=== PATIENT | male | born 1945 | race Caucasian/White ===

== ENCOUNTER → 2017-12-24 | Outpatient (CLI) | payer OTHER ==
[~2017-12-24] MED LIST: ACET-1757 PO; ACID1TAB3 PO; ALPR0.25 PO; APIX5TAB PO; ASPI325T17 PO; ATOR40TA PO; BISA10SU2 PR; CARV25TA12 PO; CHLO25TA PO; CHOL20002 PO; CLOP75TA PO; DOCU-131 PO; FOLI-17 PO; FURO20TA3 PO; HYDR12.58 PO; HYDR25TA6 PO; LISI-170 PO; LOSA25TA2 PO; LOSA50TA6 PO; NIFE20CA PO; NIFE30TA15 PO; PANT20TA3 PO; POLY17PO5 PO; POTA20TA14 PO; RIVA10TA PO; RIVA20TA PO; SENN1TAB7 PO; SERT50TA PO; SPIR25TA3 PO; THIA100T10 PO; VALS160T3 PO; cozaar; procardia
== END | disposition home or self-care (01) ==
LOC: CVU 11:53
PROVIDERS: ATTEND Psychiatry & Neurology Neurology
DX: I65.23 Occlusion and stenosis of bilateral carotid arteries (principal); I48.91 Unspecified atrial fibrillation; Z95.0 Presence of cardiac pacemaker
CPT/HCPCS: 93880

== ENCOUNTER 2018-03-31 14:20 | Inpatient (IN) | payer OTHER ==
[~2018-03-31] VITALS: Ht 182.9 cm; Wt 98.7 kg
[2018-03-31 15:07] LABS: INTERNATIONAL NORMALIZED RATIO 1.37 (0.93-1.1); PROTHROMBIN TIME 14.2 Seconds (9.6-11.5)
[2018-03-31 15:11] LABS: ALANINE AMINOTRANSFERASE 38 U/L (12-78); ALBUMIN 3.4 g/dL (3.4-5.0); ANION GAP 9 mmol/L (5-15); CALCIUM 8.6 mg/dL (8.5-10.1); CHLORIDE 106 mmol/L (98-107); CREATININE 0.93 mg/dL (0.7-1.3)
[2018-03-31 15:15] LABS: BASOPHILS # (AUTO) 0.03 x10^3/uL (0-0.1); BASOPHILS % (AUTO) 0 % (0-1); EOSINOPHILS # (AUTO) 0.04 x10^3/uL (0-0.4); EOSINOPHILS % (AUTO) 1 % (1-7); LYMPHOCYTES # (AUTO) 1.44 x10^3/uL (1-3.4); LYMPHOCYTES % (AUTO) 16 % (22-44); MD NO; MEAN CORPUSCULAR HEMOGLOBIN 30.1 pg (27.5-34.5); MEAN CORPUSCULAR HGB CONC 33.1 g/dL (33.2-36.2); MEAN CORPUSCULAR VOLUME 91.1 fL (81-97); MEAN PLATELET VOLUME 9.2 fL (7.4-10.4); MONOCYTES # (AUTO) 0.81 x10^3/uL (0.2-0.8); MONOCYTES % (AUTO) 9 % (2-9); NEUTROPHILS # (AUTO) 6.72 x10^3/uL (1.8-6.8); NEUTROPHILS % (AUTO) 74 % (42-75); PLATELET COUNT 184 x10^3/uL (130-400); RED BLOOD COUNT 4.95 x10^6/uL (4.38-5.82); RED CELL DISTRIBUTION WIDTH 14.4 % (9.4-14.8)
[2018-03-31 15:16] LABS: ALKALINE PHOSPHATASE 81 U/L (45-117); BILIRUBIN,TOTAL 1.3 mg/dL (0.2-1.0); TOTAL PROTEIN 7.1 g/dL (6.4-8.2); TROPONIN I 0.019 ng/mL (0.000-0.045)
[2018-03-31] MEDS ORDERED: FUROSEMIDE 40 MG/4 ML IV ONE (16:00)
[2018-03-31] MEDS ORDERED: FUROSEMIDE 20 MG/2 ML ONE (16:14)
[2018-03-31] MEDS ORDERED: FUROSEMIDE 40 MG/4 ML ONE (16:15)
[2018-03-31] MEDS ORDERED: ONDANSETRON 2MG/ML, 2ML IVPush PRN (16:30)
[2018-03-31] MEDS ORDERED: ACETAMINOPHEN 325 MG TABLET PO PRN (16:30)
[2018-03-31] MEDS ORDERED: BISACODYL 10 MG SUPP PR PRN (16:30)
[2018-03-31] MEDS ORDERED: CEFTRIAXONE PMX 2GM/50ML 50 ML IV SCH (17:00)
[2018-03-31] MEDS ORDERED: CEFTRIAXONE PMX 2GM/50ML 50 ML ONE (17:35)
[2018-03-31 20:32] VITALS: BP 143/93
[2018-03-31 20:48] VITALS: BP 143/93
[2018-03-31] MEDS: CARVEDILOL 12.5 MG TABLET PO SCH (21:05)
[2018-03-31] MEDS: APIXABAN 5 MG TABLET PO SCH (21:06)
[2018-03-31] MEDS: LACTOBACILLUS CHEW TABLET PO SCH (21:08)
[2018-03-31] MEDS: ISOSORBIDE DINITRATE 10 MG TABLET PO SCH (21:08)
[2018-03-31 21:28] LABS: TROPONIN I 0.018 ng/mL (0.000-0.045)
[2018-04-01 02:00] VITALS: BP 129/82
[2018-04-01 05:29] LABS: TROPONIN I 0.022 ng/mL (0.000-0.045)
[2018-04-01] MEDS ORDERED: PANTOPRAZOLE 20MG TABLET PO SCH (07:30)
[2018-04-01] MEDS ORDERED: SERTRALINE 100MG TABLET ONE (07:49)
[2018-04-01] MEDS: APIXABAN 5 MG TABLET PO SCH (07:57)
[2018-04-01] MEDS: LACTOBACILLUS CHEW TABLET PO SCH (08:01)
[2018-04-01] MEDS: ISOSORBIDE DINITRATE 10 MG TABLET PO SCH (08:01)
[2018-04-01] MEDS: CARVEDILOL 12.5 MG TABLET PO SCH (08:02)
[2018-04-01] MEDS ORDERED: AMOX-291 PO (08:04)
[2018-04-01] MEDS ORDERED: DOXY100C2 PO (08:04)
[2018-04-01] MEDS ORDERED: CARV25TA12 PO (08:04)
[2018-04-01] MEDS ORDERED: ACID1TAB7 PO (08:04)
[2018-04-01] MEDS ORDERED: HYDR-3341 PO (08:04)
[2018-04-01] MEDS ORDERED: ISOS10TA2 PO (08:04)
[2018-04-01] MEDS ORDERED: CHOLECALCIFEROL 1,000 UNIT TABLET PO SCH (09:00)
[2018-04-01] MEDS ORDERED: CHLORTHALIDONE 25 MG TABLET PO SCH (09:00)
[2018-04-01] MEDS ORDERED: AMOXICILLIN 500 MG CAPSULE PO SCH (09:00)
[2018-04-01] MEDS ORDERED: DOXYCYCLINE 100MG CAP PO SCH (09:00)
[2018-04-01] MEDS ORDERED: SERTRALINE 50MG TABLET PO SCH (09:00)
[2018-04-01 09:30] VITALS: BP_SYST 89; BP_SYST 94; BP_DIAS 50; BP_DIAS 61
[2018-04-01 12:50] VITALS: BP 100/63
== END 2018-04-01 14:25 | disposition home or self-care (01) | DRG 291 ==
LOC: ED 15:38 → EDIP 15:59 → 5SO 20:09 → DCLOUNGE 04-01 14:05
PROVIDERS: ADMIT Hospitalist; ATTEND Hospitalist
DX: I11.0 Hypertensive heart disease with heart failure (principal); J18.9 Pneumonia, unspecified organism; I48.91 Unspecified atrial fibrillation; Z79.01 Long term (current) use of anticoagulants; K21.9 Gastro-esophageal reflux disease without esophagitis; I50.9 Heart failure, unspecified; G47.00 Insomnia, unspecified; I25.2 Old myocardial infarction; Z82.49 Family history of ischemic heart disease and other diseases of the circulatory system; Z86.73 Personal history of transient ischemic attack (TIA), and cerebral infarction without residual deficits; Z91.14 Patient's other noncompliance with medication regimen; Z95.0 Presence of cardiac pacemaker; Z90.49 Acquired absence of other specified parts of digestive tract; E66.9 Obesity, unspecified; Z68.29 Body mass index [BMI] 29.0-29.9, adult; Z71.3 Dietary counseling and surveillance
CPT/HCPCS: 36415; 71045; 80053; 83880; 84484; 85025; 85610; 93005; 96374; J0696; J1940

== ENCOUNTER → 2018-04-14 | Outpatient (CLI) | payer OTHER ==
[~2018-04-14] MED LIST changes: +ACID1TAB7 PO; +AMOX-291 PO; +DOXY100C2 PO; +HYDR-3341 PO; +ISOS10TA2 PO
== END | disposition home or self-care (01) ==
LOC: CFH 08:47
PROVIDERS: ATTEND Family Medicine
DX: I08.3 Combined rheumatic disorders of mitral, aortic and tricuspid valves (principal); I50.9 Heart failure, unspecified; Z86.73 Personal history of transient ischemic attack (TIA), and cerebral infarction without residual deficits
CPT/HCPCS: 93306

== ENCOUNTER 2018-09-20 21:18 | Inpatient (IN) | payer OTHER ==
[~2018-09-20] VITALS: Ht 182.9 cm; Wt 97.8 kg
[~2018-09-20 21:18] MED LIST changes: +CARV12.543 PO; -CHOL20002 PO; +CHOL200052 PO; +FURO40TA6 PO; -HYDR12.58 PO; +HYDROCHLOROTH12.5 MG PO; -LOSA50TA6 PO; +LOSA50TA7 PO; -SENN1TAB7 PO; +SENN1TAB8 PO; +SPIR25TA PO; -SPIR25TA3 PO; +SPIR25TA5 PO
--- NOTE | 2018-09-20 21:34 | NUR ---
BELEM [facility]KIN[facility] FROM [facility] W/ CO REDNESS/PAIN/DRAINAGE AT ANGIOGRAM SITE ON R GROIN. PT DENIES FEVER/N/V BP/SP02 MONITORING IN PLACE
[2018-09-20 22:00] LABS: BASOPHILS # (AUTO) 0.03 x10^3/uL (0-0.1); BASOPHILS % (AUTO) 1 % (0-1); EOSINOPHILS # (AUTO) 0.09 x10^3/uL (0-0.4); EOSINOPHILS % (AUTO) 2 % (1-7); LYMPHOCYTES # (AUTO) 1.34 x10^3/uL (1-3.4); LYMPHOCYTES % (AUTO) 24 % (22-44); MD NO; MEAN CORPUSCULAR HEMOGLOBIN 29.7 pg (27.5-34.5); MEAN PLATELET VOLUME 9.2 fL (7.4-10.4); MONOCYTES % (AUTO) 7 % (2-9); NEUTROPHILS % (AUTO) 67 % (42-75); PLATELET COUNT 166 x10^3/uL (130-400); RED BLOOD COUNT 4.75 x10^6/uL (4.38-5.82); RED CELL DISTRIBUTION WIDTH 15.6 % (9.4-14.8)
[2018-09-20 22:08] LABS: INTERNATIONAL NORMALIZED RATIO 1.58 (0.93-1.1); PROTHROMBIN TIME 16.5 Seconds (9.6-11.5)
[2018-09-20 22:09] LABS: ALBUMIN 2.9 g/dL (3.4-5.0); ANION GAP 5 mmol/L (5-15); CALCIUM 8.3 mg/dL (8.5-10.1); CHLORIDE 107 mmol/L (98-107)
--- NOTE | 2018-09-20 22:10 | NUR ---
IV ESTABLISHED. PT UPDATED TO POC (CT/RESULTS/RECHECK) AND DEMONSTRATES UNDERSTANDING.
--- NOTE | 2018-09-20 22:24 | NUR ---
PT TO CT
[2018-09-20] MEDS ORDERED: OMNIPAQUE 350 MG/ML, 100ML BOTTLE ONE (22:41)
[2018-09-20] MEDS ORDERED: LIDOCAINE-MPF 1%, 5ML ONE (23:24)
--- NOTE | 2018-09-20 23:30 | NUR ---
POC IS I&D. I&D SET UP. PT MADE AWARE AND DEMONSTRATES UNDERSTANDING.
--- NOTE | 2018-09-20 23:56 | NUR ---
CATA NEVAREZ AT BEDSIDE FOR I&D
[2018-09-21] VITALS (9 sets, daily range): BP systolic 104–134; BP diastolic 77–96
[2018-09-21] MEDS ORDERED: CLINDAMYCIN PMX 600MG/50ML 50 ML IV ONE
[2018-09-21] MEDS ORDERED: LIDOCAINE-MPF 1%, 2ML ONE (00:02)
[2018-09-21] MEDS ORDERED: CLINDAMYCIN PMX 600MG/50ML 50 ML ONE (00:02)
--- NOTE | 2018-09-21 00:14 | NUR ---
REPORT CALLED TO RADHA KEITH ON MEDICAL FLOOR. AWAITING BC DRAW AND ABX START FOR TRANSPORT
--- NOTE | 2018-09-21 00:25 | NUR ---
BCX2 DRAWN. ABX INITIATED.
[2018-09-21] MEDS ORDERED: BISACODYL 10 MG SUPP PR PRN (00:30)
[2018-09-21] MEDS ORDERED: POLYETHYLENE GLYCOL 17 GM PACKET PO PRN (00:30)
[2018-09-21] MEDS ORDERED: ONDANSETRON ODT 4 MG PO PRN (00:30)
[2018-09-21] MEDS ORDERED: OXYcodone IR 5MG TABLET PO PRN (00:30)
[2018-09-21] MEDS ORDERED: ACETAMINOPHEN 325 MG TABLET PO PRN (00:30)
[2018-09-21] MEDS: CARVEDILOL 12.5 MG TABLET PO SCH ×2 (05:53→18:27)
[2018-09-21] MEDS: SPIRONOLACTONE 25 MG TABLET PO SCH (08:25)
[2018-09-21] MEDS: CHOLECALCIFEROL 1,000 UNIT TABLET PO SCH (08:27)
[2018-09-21] MEDS: APIXABAN 5 MG TABLET PO SCH ×2 (08:27→21:56)
[2018-09-21] MEDS: FUROSEMIDE 40 MG TABLET PO SCH (08:29)
[2018-09-21] MEDS: SERTRALINE 50MG TABLET PO SCH (08:29)
[2018-09-21] MEDS: SENNA/DOCUSATE TABLET PO SCH (08:30)
[2018-09-21] MEDS: SODIUM CHLORIDE FLUSH 10ML SYR IVF SCH ×2 (08:30→21:56)
[2018-09-21] MEDS: ISOSORBIDE DINITRATE 10 MG TABLET PO SCH ×3 (08:30→21:56)
[2018-09-21] MEDS: CLINDAMYCIN PMX 600MG/50ML 50 ML IV SCH ×2 (09:37→16:27)
[2018-09-22] MEDS: CLINDAMYCIN PMX 600MG/50ML 50 ML IV SCH ×3 (00:45→16:32)
[2018-09-22 01:48] VITALS: BP 122/88
[2018-09-22 04:44] LABS: BASOPHILS # (AUTO) 0.06 x10^3/uL (0-0.1); BASOPHILS % (AUTO) 1 % (0-1); EOSINOPHILS # (AUTO) 0.06 x10^3/uL (0-0.4); EOSINOPHILS % (AUTO) 1 % (1-7); LYMPHOCYTES # (AUTO) 1.21 x10^3/uL (1-3.4); LYMPHOCYTES % (AUTO) 25 % (22-44); MD NO; MEAN CORPUSCULAR HEMOGLOBIN 29.8 pg (27.5-34.5); MEAN CORPUSCULAR HGB CONC 33.4 g/dL (33.2-36.2); MEAN CORPUSCULAR VOLUME 89.4 fL (81-97); MEAN PLATELET VOLUME 9.1 fL (7.4-10.4); MONOCYTES # (AUTO) 0.46 x10^3/uL (0.2-0.8); MONOCYTES % (AUTO) 9 % (2-9); NEUTROPHILS # (AUTO) 3.11 x10^3/uL (1.8-6.8); NEUTROPHILS % (AUTO) 64 % (42-75); PLATELET COUNT 152 x10^3/uL (130-400); RED BLOOD COUNT 4.83 x10^6/uL (4.38-5.82); RED CELL DISTRIBUTION WIDTH 15.8 % (9.4-14.8)
[2018-09-22 04:57] LABS: ANION GAP 9 mmol/L (5-15); CALCIUM 8.6 mg/dL (8.5-10.1); CHLORIDE 107 mmol/L (98-107); CREATININE 1.19 mg/dL (0.7-1.3)
[2018-09-22] MEDS: CARVEDILOL 12.5 MG TABLET PO SCH ×2 (05:55→18:28)
[2018-09-22 07:48] VITALS: BP 124/91
[2018-09-22 08:16] VITALS: BP 120/86
[2018-09-22] MEDS: SODIUM CHLORIDE FLUSH 10ML SYR IVF SCH ×2 (08:18→20:03)
[2018-09-22] MEDS: SPIRONOLACTONE 25 MG TABLET PO SCH (08:19)
[2018-09-22] MEDS: APIXABAN 5 MG TABLET PO SCH ×2 (08:19→20:02)
[2018-09-22] MEDS: SERTRALINE 50MG TABLET PO SCH (08:20)
[2018-09-22] MEDS: ISOSORBIDE DINITRATE 10 MG TABLET PO SCH ×3 (08:20→20:03)
[2018-09-22] MEDS: CHOLECALCIFEROL 1,000 UNIT TABLET PO SCH (08:20)
[2018-09-22] MEDS: SENNA/DOCUSATE TABLET PO SCH (08:21)
[2018-09-22] MEDS: FUROSEMIDE 40 MG TABLET PO SCH (08:21)
[2018-09-22] MEDS ORDERED: CLIN300C8 PO (08:49)
[2018-09-22 12:44] VITALS: BP 112/79
[2018-09-22] MEDS ORDERED: CALCIUM CARBONATE 500 MG TABLET PO ONE (14:30)
[2018-09-22] MEDS ORDERED: CALCIUM CARBONATE 500 MG TAB.CHEW PO ONE (15:00)
[2018-09-22 16:30] VITALS: BP 112/80
[2018-09-22 20:58] VITALS: BP 101/69
[2018-09-23] MEDS: CLINDAMYCIN PMX 600MG/50ML 50 ML IV SCH ×2 (00:28→08:21)
[2018-09-23 01:01] VITALS: BP 123/74
[2018-09-23] MEDS: CARVEDILOL 12.5 MG TABLET PO SCH (05:41)
[2018-09-23 07:45] VITALS: BP 111/78
[2018-09-23] MEDS: CHOLECALCIFEROL 1,000 UNIT TABLET PO SCH (08:22)
[2018-09-23] MEDS: SPIRONOLACTONE 25 MG TABLET PO SCH (08:22)
[2018-09-23] MEDS: FUROSEMIDE 40 MG TABLET PO SCH (08:22)
[2018-09-23] MEDS: SENNA/DOCUSATE TABLET PO SCH (08:23)
[2018-09-23] MEDS: SODIUM CHLORIDE FLUSH 10ML SYR IVF SCH (08:23)
[2018-09-23] MEDS: APIXABAN 5 MG TABLET PO SCH (08:23)
[2018-09-23] MEDS: ISOSORBIDE DINITRATE 10 MG TABLET PO SCH (08:23)
[2018-09-23] MEDS: SERTRALINE 50MG TABLET PO SCH (08:23)
[2018-09-23] MEDS ORDERED: ALUMINUM/MAG/SIMETHICONE 30 ML UDC PO PRN (08:30)
== END 2018-09-23 12:38 | DRG 580 ==
LOC: ED 22:01 → EDIP 09-21 00:05 → 3NE 09-21 00:38
PROVIDERS: ADMIT Internal Medicine; ATTEND Internal Medicine
PROC: 0Y950ZZ Drainage of Right Inguinal Region, Open Approach (ICD-10-PCS; principal; 2018-09-21)
DX: L02.214 Cutaneous abscess of groin (principal); I50.42 Chronic combined systolic (congestive) and diastolic (congestive) heart failure; D68.69 Other thrombophilia; E46 Unspecified protein-calorie malnutrition; L03.115 Cellulitis of right lower limb; I48.2 Chronic atrial fibrillation; I11.0 Hypertensive heart disease with heart failure; I08.2 Rheumatic disorders of both aortic and tricuspid valves; F32.9 Major depressive disorder, single episode, unspecified; F41.9 Anxiety disorder, unspecified; Z82.49 Family history of ischemic heart disease and other diseases of the circulatory system; Z95.0 Presence of cardiac pacemaker; Z86.73 Personal history of transient ischemic attack (TIA), and cerebral infarction without residual deficits; Z98.49 Cataract extraction status, unspecified eye
CPT/HCPCS: 10060; 36415; 74177; 80048; 82040; 83605; 85025; 85610; 85730; 86140; 87040; G0378; Q0162; Q9967

== ENCOUNTER 2018-11-02 11:30 | Outpatient (CLI) | payer OTHER ==
[~2018-11-02 11:30] MED LIST changes: +CLIN300C8 PO; +LOSA50TA14 PO; -LOSA50TA7 PO; -RIVA10TA PO; +RIVA10TA2 PO
[2018-11-02] MEDS ORDERED: OMNIPAQUE 350 MG/ML, 150 ML BOTTLE ONE (13:48)
== END 2018-11-02 23:59 | disposition home or self-care (01) ==
LOC: CVU 11:30 → RAD 23:59
PROVIDERS: ATTEND Internal Medicine Cardiovascular Disease
DX: N28.1 Cyst of kidney, acquired (principal); I65.23 Occlusion and stenosis of bilateral carotid arteries; I77.810 Thoracic aortic ectasia; I35.0 Nonrheumatic aortic (valve) stenosis; R53.83 Other fatigue; I11.9 Hypertensive heart disease without heart failure; I25.2 Old myocardial infarction; I48.91 Unspecified atrial fibrillation
CPT/HCPCS: 71275; 74174; 93880; 94060; 94729; Q9967

== ENCOUNTER 2018-11-08 07:45 | Inpatient (IN) | payer OTHER ==
[2018-11-07 12:27] LABS: MEAN CORPUSCULAR HEMOGLOBIN 29.5 pg (27.5-34.5); MEAN CORPUSCULAR HGB CONC 32.6 g/dL (33.2-36.2); MEAN CORPUSCULAR VOLUME 90.5 fL (81-97); MEAN PLATELET VOLUME 10.1 fL (7.4-10.4); PLATELET COUNT 152 x10^3/uL (130-400); RED BLOOD COUNT 4.69 x10^6/uL (4.38-5.82); RED CELL DISTRIBUTION WIDTH 22.1 % (9.4-14.8)
[2018-11-07 12:49] LABS: ALANINE AMINOTRANSFERASE 21 U/L (12-78); ANION GAP 5 mmol/L (5-15); CALCIUM 8.5 mg/dL (8.5-10.1); CHLORIDE 109 mmol/L (98-107); CREATININE 1.24 mg/dL (0.7-1.3)
[2018-11-07 12:51] LABS: ALKALINE PHOSPHATASE 99 U/L (45-117); BILIRUBIN,TOTAL 1.1 mg/dL (0.2-1.0); TOTAL PROTEIN 6.9 g/dL (6.4-8.2)
[2018-11-07 12:55] LABS: BASOPHILS # (AUTO) 0.03 x10^3/uL (0-0.1); BASOPHILS % (AUTO) 1 % (0-1); EOSINOPHILS # (AUTO) 0.01 x10^3/uL (0-0.4); EOSINOPHILS % (AUTO) 0 % (1-7); LYMPHOCYTES # (AUTO) 0.84 x10^3/uL (1-3.4); LYMPHOCYTES % (AUTO) 18 % (22-44); MD MORPH REVIEW ONLY; MONOCYTES # (AUTO) 0.44 x10^3/uL (0.2-0.8); MONOCYTES % (AUTO) 9 % (2-9); NEUTROPHILS # (AUTO) 3.45 x10^3/uL (1.8-6.8); NEUTROPHILS % (AUTO) 72 % (42-75)
[2018-11-07 12:56] LABS: ANISOCYTOSIS 1+; OVALOCYTES 1+
[2018-11-07 12:58] LABS: ACANTHOCYTES 1+; ECHINOCYTES 1+
[2018-11-07 12:59] LABS: <PLATELET ESTIMATE> ADEQUATE; LARGE PLATELETS 1+
[2018-11-08] VITALS (11 sets, daily range): BP systolic 101–159; BP diastolic 69–104
[~2018-11-08] VITALS: Ht 193 cm; Wt 93.2 kg
[2018-11-08] MEDS ORDERED: SODIUM CHLORIDE 0.9% 1,000 ML IV ONE (08:03)
[2018-11-08] MEDS ORDERED: ONDANSETRON 2MG/ML, 2ML IVPush PRN (08:30)
[2018-11-08] MEDS ORDERED: PLEASE ENTER HEIGHT AND WEIGHT MC SCH (08:30)
[2018-11-08] MEDS ORDERED: CHLORHEXIDINE 15 ML UDC MM PRN (08:30)
[2018-11-08 08:53] LABS: INTERNATIONAL NORMALIZED RATIO 1.37 (0.93-1.1); MEAN CORPUSCULAR HEMOGLOBIN 28.6 pg (27.5-34.5); MEAN CORPUSCULAR HGB CONC 31.8 g/dL (33.2-36.2); MEAN CORPUSCULAR VOLUME 90.1 fL (81-97); MEAN PLATELET VOLUME 9.6 fL (7.4-10.4); PLATELET COUNT 170 x10^3/uL (130-400); PROTHROMBIN TIME 14.3 Seconds (9.6-11.5); RED BLOOD COUNT 4.98 x10^6/uL (4.38-5.82); RED CELL DISTRIBUTION WIDTH 22.3 % (9.4-14.8)
[2018-11-08 08:54] LABS: ALANINE AMINOTRANSFERASE 21 U/L (12-78); ALBUMIN 3.2 g/dL (3.4-5.0); ANION GAP 8 mmol/L (5-15); CALCIUM 8.9 mg/dL (8.5-10.1); CHLORIDE 106 mmol/L (98-107); CREATININE 1.35 mg/dL (0.7-1.3)
[2018-11-08 08:58] LABS: ALKALINE PHOSPHATASE 94 U/L (45-117); BILIRUBIN,TOTAL 1.4 mg/dL (0.2-1.0); TOTAL PROTEIN 7.1 g/dL (6.4-8.2)
[2018-11-08 09:30] LABS: ANISOCYTOSIS 1+; BASOPHILS # (AUTO) 0.02 x10^3/uL (0-0.1); BASOPHILS % (AUTO) 0 % (0-1); EOSINOPHILS # (AUTO) 0.03 x10^3/uL (0-0.4); EOSINOPHILS % (AUTO) 1 % (1-7); LYMPHOCYTES # (AUTO) 0.85 x10^3/uL (1-3.4); LYMPHOCYTES % (AUTO) 17 % (22-44); MD MORPH REVIEW ONLY; MONOCYTES # (AUTO) 0.44 x10^3/uL (0.2-0.8); MONOCYTES % (AUTO) 9 % (2-9); NEUTROPHILS # (AUTO) 3.68 x10^3/uL (1.8-6.8); NEUTROPHILS % (AUTO) 73 % (42-75)
[2018-11-08 09:32] LABS: ACANTHOCYTES 1+; OVALOCYTES 1+
[2018-11-08] MEDS ORDERED: FENTANYL PF 100 MCG/2ML ONE (09:32)
[2018-11-08] MEDS ORDERED: ROCURONIUM 10MG/ML,5ML ONE (09:33)
[2018-11-08] MEDS ORDERED: PROPOFOL 10 MG/ML, 20ML ONE (09:33)
[2018-11-08 09:35] LABS: <PLATELET ESTIMATE> ADEQUATE; ECHINOCYTES 1+
[2018-11-08 09:36] LABS: LARGE PLATELETS 1+
[2018-11-08] MEDS ORDERED: SUCCINYLCHOLINE 20 MG/ML, 10ML ONE (09:41)
[2018-11-08] MEDS ORDERED: DEXAMETHASONE 4 MG/ML, 1ML ONE (09:41)
[2018-11-08] MEDS ORDERED: PHENYLEPHRINE 10 MG/ML ONE (09:41)
[2018-11-08] MEDS ORDERED: ONDANSETRON 2MG/ML, 2ML ONE (09:41)
[2018-11-08] MEDS ORDERED: PROTAMINE SULFATE 10 MG/ML, 5ML ONE (09:58)
[2018-11-08] MEDS ORDERED: CEFAZOLIN 1,000 MG ONE (09:58)
[2018-11-08] MEDS ORDERED: hydrALAzine 20 MG/ML, 1ML IVPush PRN (11:00)
[2018-11-08] MEDS ORDERED: LABETALOL 20 MG/4 ML IVPush PRN (11:00)
[2018-11-08] MEDS: ISOSORBIDE DINITRATE 10 MG TABLET PO SCH ×2 (17:16→21:46)
[2018-11-08] MEDS: ASPIRIN 81 MG TABLET EC PO SCH (17:16)
[2018-11-08] MEDS: CARVEDILOL 12.5 MG TABLET PO SCH (17:16)
[2018-11-08] MEDS: APIXABAN 5 MG TABLET PO SCH (21:46)
[2018-11-08] MEDS ORDERED: CEFAZOLIN PMX 1GM/50ML 50 ML IV ONE (22:00)
[2018-11-09 02:20] VITALS: BP 109/64
[2018-11-09] MEDS: CARVEDILOL 12.5 MG TABLET PO SCH ×2 (05:12→16:53)
[2018-11-09 06:13] LABS: BASOPHILS # (AUTO) 0.02 x10^3/uL (0-0.1); BASOPHILS % (AUTO) 0 % (0-1); EOSINOPHILS # (AUTO) 0.01 x10^3/uL (0-0.4); EOSINOPHILS % (AUTO) 0 % (1-7); LYMPHOCYTES # (AUTO) 1.13 x10^3/uL (1-3.4); LYMPHOCYTES % (AUTO) 20 % (22-44); MD NO; MEAN CORPUSCULAR HEMOGLOBIN 29.3 pg (27.5-34.5); MEAN CORPUSCULAR HGB CONC 32.4 g/dL (33.2-36.2); MEAN CORPUSCULAR VOLUME 90.5 fL (81-97); MEAN PLATELET VOLUME 9.6 fL (7.4-10.4); MONOCYTES # (AUTO) 0.39 x10^3/uL (0.2-0.8); MONOCYTES % (AUTO) 7 % (2-9); NEUTROPHILS % (AUTO) 73 % (42-75); PLATELET COUNT 138 x10^3/uL (130-400); RED BLOOD COUNT 4.44 x10^6/uL (4.38-5.82); RED CELL DISTRIBUTION WIDTH 21.9 % (9.4-14.8)
[2018-11-09 06:20] LABS: ANION GAP 9 mmol/L (5-15); CALCIUM 8.5 mg/dL (8.5-10.1); CHLORIDE 110 mmol/L (98-107); CREATININE 1.14 mg/dL (0.7-1.3)
[2018-11-09 06:49] VITALS: BP 101/65
[2018-11-09] MEDS ORDERED: ISOSORBIDE DINITRATE 20 MG TABLET ONE (08:10)
[2018-11-09] MEDS: ASPIRIN 81 MG TABLET EC PO SCH (08:22)
[2018-11-09] MEDS: SERTRALINE 50MG TABLET PO SCH (08:23)
[2018-11-09] MEDS: FUROSEMIDE 40 MG TABLET PO SCH (08:23)
[2018-11-09] MEDS: APIXABAN 5 MG TABLET PO SCH ×2 (08:23→20:56)
[2018-11-09] MEDS: ISOSORBIDE DINITRATE 10 MG TABLET PO SCH ×3 (08:38→20:56)
[2018-11-09] MEDS ORDERED: SPIRONOLACTONE 25 MG TABLET PO SCH (09:00)
[2018-11-09 13:12] VITALS: BP 103/70
[2018-11-09] MEDS ORDERED: ACETAMINOPHEN 325 MG TABLET PO PRN (17:30)
[2018-11-09 19:13] VITALS: BP 101/66
[2018-11-09] MEDS: ENALAPRIL 2.5MG TABLET PO SCH (20:56)
[2018-11-10 01:53] VITALS: BP 110/75
[2018-11-10] MEDS: CARVEDILOL 12.5 MG TABLET PO SCH ×2 (05:47→17:11)
[2018-11-10 08:49] VITALS: BP 102/73
[2018-11-10] MEDS ORDERED: ENALAPRIL 5MG TABLET ONE (08:56)
[2018-11-10] MEDS ORDERED: ISOSORBIDE DINITRATE 20 MG TABLET ONE ×2 (08:56→17:05)
[2018-11-10 09:00] VITALS: BP 110/73
[2018-11-10] MEDS: SPIRONOLACTONE 25 MG TABLET PO SCH (09:06)
[2018-11-10] MEDS: APIXABAN 5 MG TABLET PO SCH ×2 (09:06→20:17)
[2018-11-10] MEDS: ASPIRIN 81 MG TABLET EC PO SCH (09:07)
[2018-11-10] MEDS: FUROSEMIDE 40 MG TABLET PO SCH (09:07)
[2018-11-10] MEDS: ISOSORBIDE DINITRATE 10 MG TABLET PO SCH ×3 (09:07→20:17)
[2018-11-10] MEDS: ENALAPRIL 2.5MG TABLET PO SCH ×2 (09:08→20:17)
[2018-11-10] MEDS: SERTRALINE 50MG TABLET PO SCH (09:09)
[2018-11-10 15:13] VITALS: BP 100/69
[2018-11-10 17:08] VITALS: BP 129/88
[2018-11-10 20:12] VITALS: BP 107/69
[2018-11-11 02:52] VITALS: BP 114/85
[2018-11-11] MEDS: CARVEDILOL 12.5 MG TABLET PO SCH ×2 (05:47→17:56)
[2018-11-11 07:10] VITALS: BP 113/82
[2018-11-11] MEDS ORDERED: ENALAPRIL 5MG TABLET ONE (09:46)
[2018-11-11] MEDS ORDERED: ISOSORBIDE DINITRATE 20 MG TABLET ONE ×2 (09:46→17:53)
[2018-11-11] MEDS: FUROSEMIDE 40 MG TABLET PO SCH (10:35)
[2018-11-11] MEDS: ASPIRIN 81 MG TABLET EC PO SCH (10:35)
[2018-11-11] MEDS: SERTRALINE 50MG TABLET PO SCH (10:35)
[2018-11-11] MEDS: APIXABAN 5 MG TABLET PO SCH ×2 (10:35→20:15)
[2018-11-11] MEDS: SPIRONOLACTONE 25 MG TABLET PO SCH (10:35)
[2018-11-11] MEDS: ENALAPRIL 2.5MG TABLET PO SCH ×2 (10:36→20:14)
[2018-11-11] MEDS: ISOSORBIDE DINITRATE 10 MG TABLET PO SCH ×3 (10:37→20:15)
[2018-11-11 13:25] VITALS: BP 107/69
[2018-11-11 19:35] VITALS: BP 96/63
[2018-11-12 00:48] VITALS: BP 126/84
[2018-11-12] MEDS: CARVEDILOL 12.5 MG TABLET PO SCH ×2 (06:23→19:09)
[2018-11-12 06:26] VITALS: BP 144/98
[2018-11-12] MEDS ORDERED: ISOSORBIDE DINITRATE 20 MG TABLET ONE ×2 (08:35→17:20)
[2018-11-12] MEDS ORDERED: ENALAPRIL 5MG TABLET ONE (08:36)
[2018-11-12] MEDS: SPIRONOLACTONE 25 MG TABLET PO SCH (08:39)
[2018-11-12] MEDS: SERTRALINE 50MG TABLET PO SCH (08:39)
[2018-11-12] MEDS: APIXABAN 5 MG TABLET PO SCH ×2 (08:39→21:30)
[2018-11-12] MEDS: FUROSEMIDE 40 MG TABLET PO SCH (08:39)
[2018-11-12] MEDS: ASPIRIN 81 MG TABLET EC PO SCH (08:39)
[2018-11-12] MEDS: ISOSORBIDE DINITRATE 10 MG TABLET PO SCH ×3 (08:40→21:29)
[2018-11-12] MEDS: ENALAPRIL 2.5MG TABLET PO SCH ×2 (08:41→21:30)
[2018-11-12 12:36] VITALS: BP 117/76
[2018-11-12 19:14] VITALS: BP 126/79
[2018-11-13 00:57] VITALS: BP 131/87
[2018-11-13] MEDS: CARVEDILOL 12.5 MG TABLET PO SCH ×2 (06:15→17:11)
[2018-11-13 07:25] VITALS: BP 134/89
[2018-11-13] MEDS ORDERED: ISOSORBIDE DINITRATE 20 MG TABLET ONE ×2 (08:20→16:26)
[2018-11-13] MEDS ORDERED: ENALAPRIL 5MG TABLET ONE (08:21)
[2018-11-13] MEDS: ASPIRIN 81 MG TABLET EC PO SCH (08:23)
[2018-11-13] MEDS: SPIRONOLACTONE 25 MG TABLET PO SCH (08:23)
[2018-11-13] MEDS: SERTRALINE 50MG TABLET PO SCH (08:23)
[2018-11-13] MEDS: APIXABAN 5 MG TABLET PO SCH ×2 (08:23→20:58)
[2018-11-13] MEDS: ENALAPRIL 2.5MG TABLET PO SCH ×2 (08:23→20:58)
[2018-11-13] MEDS: ISOSORBIDE DINITRATE 10 MG TABLET PO SCH ×3 (08:24→20:58)
[2018-11-13] MEDS: FUROSEMIDE 40 MG TABLET PO SCH (08:24)
[2018-11-13 08:27] VITALS: BP 121/82
[2018-11-13 13:35] VITALS: BP 119/83
[2018-11-13 17:10] VITALS: BP 123/78
[2018-11-13 20:25] VITALS: BP 115/77
[2018-11-14 00:57] VITALS: BP 129/87
[2018-11-14] MEDS: CARVEDILOL 12.5 MG TABLET PO SCH ×2 (05:38→18:02)
[2018-11-14 06:56] VITALS: BP 131/89
[2018-11-14] MEDS ORDERED: OXYMETAZOLINE NASAL SPRAY 0.05%, 15ML NAS PRN (08:30)
[2018-11-14] MEDS: ISOSORBIDE DINITRATE 10 MG TABLET PO SCH ×3 (09:42→20:02)
[2018-11-14] MEDS: SPIRONOLACTONE 25 MG TABLET PO SCH (09:42)
[2018-11-14] MEDS: FUROSEMIDE 40 MG TABLET PO SCH (09:43)
[2018-11-14] MEDS: OXYMETAZOLINE NASAL SPRAY 0.05%, 15ML NAS SCH ×2 (09:43→20:02)
[2018-11-14] MEDS: ASPIRIN 81 MG TABLET EC PO SCH (09:43)
[2018-11-14] MEDS: ENALAPRIL 2.5MG TABLET PO SCH ×2 (09:43→20:01)
[2018-11-14] MEDS: SERTRALINE 50MG TABLET PO SCH (09:43)
[2018-11-14] MEDS: APIXABAN 5 MG TABLET PO SCH ×2 (12:12→20:02)
[2018-11-14 13:34] VITALS: BP 127/85
[2018-11-14] MEDS ORDERED: ISOSORBIDE DINITRATE 20 MG TABLET ONE (17:45)
[2018-11-14 19:42] VITALS: BP 112/72
[2018-11-15 01:36] VITALS: BP 129/87
[2018-11-15] MEDS: CARVEDILOL 12.5 MG TABLET PO SCH ×2 (05:58→17:02)
[2018-11-15 06:52] VITALS: BP 125/86
[2018-11-15] MEDS ORDERED: ISOSORBIDE DINITRATE 20 MG TABLET ONE ×2 (08:53→16:42)
[2018-11-15] MEDS ORDERED: ENALAPRIL 5MG TABLET ONE (08:53)
[2018-11-15] MEDS: SPIRONOLACTONE 25 MG TABLET PO SCH (08:56)
[2018-11-15] MEDS: FUROSEMIDE 40 MG TABLET PO SCH (08:56)
[2018-11-15] MEDS: SERTRALINE 50MG TABLET PO SCH (08:56)
[2018-11-15] MEDS: ASPIRIN 81 MG TABLET EC PO SCH (08:56)
[2018-11-15] MEDS: APIXABAN 5 MG TABLET PO SCH ×2 (08:56→21:50)
[2018-11-15] MEDS: OXYMETAZOLINE NASAL SPRAY 0.05%, 15ML NAS SCH ×2 (08:56→21:51)
[2018-11-15] MEDS: ENALAPRIL 2.5MG TABLET PO SCH ×2 (08:57→21:51)
[2018-11-15] MEDS: ISOSORBIDE DINITRATE 10 MG TABLET PO SCH ×3 (08:57→21:00)
[2018-11-15] MEDS ORDERED: SPIR25TA PO (09:44)
[2018-11-15 12:14] VITALS: BP 125/83
[2018-11-15 20:30] VITALS: BP 125/75
[2018-11-16 01:23] VITALS: BP 111/71
[2018-11-16] MEDS: CARVEDILOL 12.5 MG TABLET PO SCH ×2 (05:35→17:46)
[2018-11-16 07:10] VITALS: BP 124/86
[2018-11-16] MEDS ORDERED: ISOSORBIDE DINITRATE 20 MG TABLET ONE ×2 (08:25→19:49)
[2018-11-16] MEDS ORDERED: ENALAPRIL 5MG TABLET ONE ×2 (08:25→19:49)
[2018-11-16] MEDS: ASPIRIN 81 MG TABLET EC PO SCH (08:27)
[2018-11-16] MEDS: FUROSEMIDE 40 MG TABLET PO SCH (08:27)
[2018-11-16] MEDS: SERTRALINE 50MG TABLET PO SCH (08:27)
[2018-11-16] MEDS: SPIRONOLACTONE 25 MG TABLET PO SCH (08:27)
[2018-11-16] MEDS: ENALAPRIL 2.5MG TABLET PO SCH ×2 (08:28→19:52)
[2018-11-16] MEDS: OXYMETAZOLINE NASAL SPRAY 0.05%, 15ML NAS SCH ×2 (08:28→19:51)
[2018-11-16] MEDS: ISOSORBIDE DINITRATE 10 MG TABLET PO SCH ×3 (08:28→19:52)
[2018-11-16] MEDS: APIXABAN 5 MG TABLET PO SCH ×2 (08:28→19:52)
[2018-11-16 12:44] VITALS: BP 130/86
[2018-11-16 20:07] VITALS: BP 113/69
[2018-11-17 01:50] VITALS: BP 122/77
[2018-11-17] MEDS: CARVEDILOL 12.5 MG TABLET PO SCH ×2 (05:24→17:29)
[2018-11-17 07:08] VITALS: BP 124/84
[2018-11-17] MEDS: ISOSORBIDE DINITRATE 10 MG TABLET PO SCH ×2 (09:00→16:00)
[2018-11-17] MEDS: SPIRONOLACTONE 25 MG TABLET PO SCH (09:43)
[2018-11-17] MEDS: ASPIRIN 81 MG TABLET EC PO SCH (09:43)
[2018-11-17] MEDS: SERTRALINE 50MG TABLET PO SCH (09:43)
[2018-11-17] MEDS: ENALAPRIL 2.5MG TABLET PO SCH ×2 (09:43→18:51)
[2018-11-17] MEDS: FUROSEMIDE 40 MG TABLET PO SCH (09:44)
[2018-11-17] MEDS: APIXABAN 5 MG TABLET PO SCH (09:44)
[2018-11-17] MEDS: OXYMETAZOLINE NASAL SPRAY 0.05%, 15ML NAS SCH (09:46)
[2018-11-17 14:00] VITALS: BP 123/83
[2018-11-17] MEDS ORDERED: ENAL2.5T32 PO (18:39)
== END 2018-11-17 19:10 | disposition home health service (06) | DRG 266 ==
LOC: ORIP 07:45 → CSU 08:39 → 5SO 18:24
PROVIDERS: ADMIT Internal Medicine Cardiovascular Disease; ATTEND Internal Medicine Cardiovascular Disease
PROC: B24BZZ4 Ultrasonography of Heart with Aorta, Transesophageal (ICD-10-PCS; 2018-11-08)
PROC: 03HY32Z Insertion of Monitoring Device into Upper Artery, Percutaneous Approach (ICD-10-PCS; 2018-11-08)
PROC: 02RF38Z Replacement of Aortic Valve with Zooplastic Tissue, Percutaneous Approach (ICD-10-PCS; principal; 2018-11-08 10:00)
DX: I35.0 Nonrheumatic aortic (valve) stenosis (principal); Z00.6 Encounter for examination for normal comparison and control in clinical research program; I50.43 Acute on chronic combined systolic (congestive) and diastolic (congestive) heart failure; D68.69 Other thrombophilia; R04.0 Epistaxis; I11.0 Hypertensive heart disease with heart failure; I48.2 Chronic atrial fibrillation; Z87.891 Personal history of nicotine dependence; Z95.0 Presence of cardiac pacemaker; Z86.73 Personal history of transient ischemic attack (TIA), and cerebral infarction without residual deficits
CPT/HCPCS: 33361; 36415; 80048; 80053; 83880; 85025; 85347; 85610; 85730; 86850; 86900; 86923; 87081; 93005; 93308; 93312; 93321; 93325; 93355; 93970; C1760; C1769; C1894; G0378; J0690; J1100; J2405; J2704; J2720; J3010; J0330; J2370; J3490; Q9967

== ENCOUNTER 2018-11-30 10:28 | Inpatient (IN) | payer OTHER ==
[~2018-11-30] VITALS: Ht 167.6 cm; Wt 84.1 kg
[~2018-11-30 10:28] MED LIST changes: +ENAL2.5T32 PO; +SENN-177 PO; -SENN1TAB8 PO
[2018-11-30] MEDS ORDERED: SODIUM CHLORIDE FLUSH 10ML SYR IVF ONE (11:00)
--- NOTE | 2018-11-30 11:28 | NUR ---
PT ASSISTED TO USE URINAL. PT STATES DIZZINESS REMAINS WHILE STANDING UP. BACK TO [facility]. CP MONIOTRS IN PLACE. AWAITING FURTHER ORDERS.
[2018-11-30 12:00] LABS: INTERNATIONAL NORMALIZED RATIO 1.22 (0.93-1.1); PROTHROMBIN TIME 12.7 Seconds (9.6-11.5)
[2018-11-30 12:01] LABS: ALANINE AMINOTRANSFERASE 20 U/L (12-78); ALBUMIN 3.4 g/dL (3.4-5.0); ANION GAP 4 mmol/L (5-15); CALCIUM 8.9 mg/dL (8.5-10.1); CHLORIDE 107 mmol/L (98-107); CREATININE 0.82 mg/dL (0.7-1.3)
[2018-11-30 12:03] LABS: ALKALINE PHOSPHATASE 112 U/L (45-117); BILIRUBIN,TOTAL 0.9 mg/dL (0.2-1.0); TOTAL PROTEIN 7.4 g/dL (6.4-8.2)
[2018-11-30 12:33] LABS: BASOPHILS % (AUTO) 0 % (0-1); EOSINOPHILS # (AUTO) 0.05 x10^3/uL (0-0.4); EOSINOPHILS % (AUTO) 1 % (1-7); LYMPHOCYTES # (AUTO) 0.87 x10^3/uL (1-3.4); LYMPHOCYTES % (AUTO) 12 % (22-44); MD SCAN; MEAN CORPUSCULAR HEMOGLOBIN 29.5 pg (27.5-34.5); MEAN CORPUSCULAR HGB CONC 32.5 g/dL (33.2-36.2); MEAN CORPUSCULAR VOLUME 90.8 fL (81-97); MEAN PLATELET VOLUME 8.8 fL (7.4-10.4); MONOCYTES # (AUTO) 0.43 x10^3/uL (0.2-0.8); MONOCYTES % (AUTO) 6 % (2-9); NEUTROPHILS # (AUTO) 6.11 x10^3/uL (1.8-6.8); NEUTROPHILS % (AUTO) 82 % (42-75); PLATELET COUNT 199 x10^3/uL (130-400)
[2018-11-30 12:38] LABS: RED CELL DISTRIBUTION WIDTH 22.4 % (9.4-14.8)
--- NOTE | 2018-11-30 12:56 | NUR ---
LUNCH RN: PT RESTING IN ROOM. NADN AND PT HAS NO NEEDS AT THIS TIME.
--- NOTE | 2018-11-30 13:01 | NUR ---
LUNCH RN: PT DEATURATING WHILE SLEEPING, PT PLACED ON 02 2LNC.
[2018-11-30] MEDS ORDERED: NITROGLYCERIN 0.4 MG BOTTLE (25 TABS) SL PRN (14:30)
[2018-11-30] MEDS ORDERED: LABETALOL 5MG/ML, 20ML IVPush PRN (14:30)
[2018-11-30] MEDS ORDERED: ACETAMINOPHEN 325 MG TABLET PO PRN (14:30)
[2018-11-30 15:23] LABS: FREE T4 (FREE THYROXINE) 1.15 ng/dL (0.76-1.46); TROPONIN I 0.084 ng/mL (0.000-0.045)
[2018-11-30] MEDS: ISOSORBIDE DINITRATE 10 MG TABLET PO SCH ×2 (16:38→20:38)
--- NOTE | 2018-11-30 16:39 | NUR ---
PT AMBUATORY TO BATHROOM WITH ASSIST, PT STATES HE IS LESS DIZZY. PT PROVIDED WITH MEAL TRAJOEL Ndiaye. ALL CONCERNS ADRESSED.
--- NOTE | 2018-11-30 17:36 | NUR ---
REPORT TO ARDHA HILARIO.
[2018-11-30 18:33] VITALS: BP 114/74
[2018-11-30] MEDS: CARVEDILOL 12.5 MG TABLET PO SCH (19:29)
[2018-11-30] MEDS ORDERED: ENALAPRIL 5MG TABLET ONE (20:22)
[2018-11-30 20:30] VITALS: BP_SYST 100; BP_SYST 102; BP_SYST 104; BP_DIAS 66; BP_DIAS 73; BP_DIAS 74
[2018-11-30] MEDS: APIXABAN 5 MG TABLET PO SCH (20:38)
[2018-11-30] MEDS: ENALAPRIL 2.5MG TABLET PO SCH (20:39)
[2018-11-30 20:51] LABS: TROPONIN I 0.085 ng/mL (0.000-0.045)
[2018-12-01 02:43] VITALS: BP_SYST 131; BP_SYST 134; BP_SYST 136; BP_DIAS 82; BP_DIAS 91; BP_DIAS 95
[2018-12-01] MEDS: CARVEDILOL 12.5 MG TABLET PO SCH ×2 (05:13→17:04)
[2018-12-01 06:13] LABS: MEAN CORPUSCULAR HEMOGLOBIN 29.9 pg (27.5-34.5); MEAN CORPUSCULAR VOLUME 90.7 fL (81-97); PLATELET COUNT 182 x10^3/uL (130-400); RED BLOOD COUNT 4.86 x10^6/uL (4.38-5.82); RED CELL DISTRIBUTION WIDTH 22.1 % (9.4-14.8)
[2018-12-01 06:14] LABS: CHLORIDE 108 mmol/L (98-107)
[2018-12-01 06:30] LABS: ALANINE AMINOTRANSFERASE 19 U/L (12-78); ALBUMIN 3.1 g/dL (3.4-5.0); ALKALINE PHOSPHATASE 104 U/L (45-117); ANION GAP 4 mmol/L (5-15); BILIRUBIN,TOTAL 0.9 mg/dL (0.2-1.0); CALCIUM 8.6 mg/dL (8.5-10.1); CREATININE 0.78 mg/dL (0.7-1.3); THYROID STIMULATING HORMONE 0.901 mIU/L (0.358-3.740); TOTAL PROTEIN 7.2 g/dL (6.4-8.2)
[2018-12-01 06:58] LABS: BASOPHILS # (AUTO) 0.02 x10^3/uL (0-0.1); BASOPHILS % (AUTO) 0 % (0-1); EOSINOPHILS # (AUTO) 0.04 x10^3/uL (0-0.4); EOSINOPHILS % (AUTO) 1 % (1-7); LYMPHOCYTES # (AUTO) 1.35 x10^3/uL (1-3.4); LYMPHOCYTES % (AUTO) 22 % (22-44); MD MORPH REVIEW ONLY; MONOCYTES % (AUTO) 10 % (2-9); NEUTROPHILS # (AUTO) 4.12 x10^3/uL (1.8-6.8); NEUTROPHILS % (AUTO) 67 % (42-75)
[2018-12-01 06:59] LABS: ANISOCYTOSIS 1+; OVALOCYTES 2+
[2018-12-01 07:00] LABS: <PLATELET ESTIMATE> ADEQUATE; <PLT MORPHOLOGY> NORMAL PLT MORPH; SCHISTOCYTES 1+
[2018-12-01 07:18] VITALS: BP 122/84
[2018-12-01] MEDS ORDERED: ENALAPRIL 5MG TABLET ONE (09:39)
[2018-12-01] MEDS ORDERED: ISOSORBIDE DINITRATE 20 MG TABLET ONE ×2 (09:40→16:59)
[2018-12-01] MEDS: ISOSORBIDE DINITRATE 10 MG TABLET PO SCH ×3 (09:44→21:18)
[2018-12-01] MEDS: FUROSEMIDE 40 MG TABLET PO SCH (09:44)
[2018-12-01] MEDS: ENALAPRIL 2.5MG TABLET PO SCH ×2 (09:44→21:18)
[2018-12-01] MEDS: APIXABAN 5 MG TABLET PO SCH ×2 (09:45→21:18)
[2018-12-01] MEDS: SPIRONOLACTONE 25 MG TABLET PO SCH (09:47)
[2018-12-01 15:51] VITALS: BP 124/84
[2018-12-01 17:03] VITALS: BP 126/85
[2018-12-01 18:34] VITALS: BP 117/75
[2018-12-02 00:28] VITALS: BP 121/78
[2018-12-02] MEDS: CARVEDILOL 12.5 MG TABLET PO SCH (06:17)
[2018-12-02 07:06] VITALS: BP 140/98
[2018-12-02] MEDS: APIXABAN 5 MG TABLET PO SCH (10:30)
[2018-12-02] MEDS: FUROSEMIDE 40 MG TABLET PO SCH (10:30)
[2018-12-02] MEDS: ISOSORBIDE DINITRATE 10 MG TABLET PO SCH ×2 (10:30→15:44)
[2018-12-02] MEDS: ENALAPRIL 2.5MG TABLET PO SCH (10:30)
[2018-12-02] MEDS: SPIRONOLACTONE 25 MG TABLET PO SCH (10:30)
== END 2018-12-02 17:06 | disposition home health service (06) | DRG 74 ==
LOC: ED 11:19 → EDIP 12:49 → 5SO 18:21
PROVIDERS: ADMIT Internal Medicine; ATTEND Internal Medicine
DX: G90.8 Other disorders of autonomic nervous system (principal); D68.69 Other thrombophilia; I42.9 Cardiomyopathy, unspecified; I08.3 Combined rheumatic disorders of mitral, aortic and tricuspid valves; I11.0 Hypertensive heart disease with heart failure; I25.10 Atherosclerotic heart disease of native coronary artery without angina pectoris; I48.2 Chronic atrial fibrillation; I50.9 Heart failure, unspecified; I67.9 Cerebrovascular disease, unspecified; I77.810 Thoracic aortic ectasia; Z66 Do not resuscitate; Z79.01 Long term (current) use of anticoagulants; Z86.73 Personal history of transient ischemic attack (TIA), and cerebral infarction without residual deficits; Z90.49 Acquired absence of other specified parts of digestive tract; Z95.0 Presence of cardiac pacemaker; Z95.2 Presence of prosthetic heart valve
CPT/HCPCS: 36415; 71045; 80053; 83735; 84439; 84443; 84484; 85025; 85610; 85730; 93005; 93306; G0378